=== PATIENT | male | born 1975 | race Caucasian/White ===

== ENCOUNTER 2025-03-31 10:08 | Emergency (ER) | payer BC ==
[2025-03-31 11:17] LABS: BASOPHILS ABSOLUTE AUTO 0.0 K/mm3 (0.0-0.2); BASOPHILS PERCENT AUTO 0.7 % (0.0-1.0); EOSINOPHILS ABSOLUTE AUTO 0.2 K/mm3 (0.0-0.4); EOSINOPHILS PERCENT AUTO 4.7 % (0.0-6.0); IMMATURE GRAN ABSOLUTE AUTO 0.01 K/mm3 (0.00-0.05); IMMATURE GRAN PERCENT AUTO 0.2 % (0.0-0.4); LYMPHOCYTES ABSOLUTE AUTO 1.3 K/mm3 (1.0-4.8); LYMPHOCYTES PERCENT AUTO 29.6 % (24.0-44.0); MEAN PLATELET VOLUME 11.4 fl (9.4-12.4); MONOCYTES ABSOLUTE AUTO 0.6 K/mm3 (0.0-0.8); MONOCYTES PERCENT AUTO 13.0 % (0.0-8.0); NEUTROPHILS ABSOLUTE AUTO 2.2 K/mm3 (1.8-7.7); NEUTROPHILS PERCENT AUTO 51.8 % (41.0-71.0); NRBC ABSOLUTE 0.00 (0.00-0.02); NRBC PERCENT 0.0 % (0.0-0.2); PLATELET COUNT,PLT 213 K/mm3 (150-400); RED BLOOD CELL COUNT 5.34 M/mm3 (4.52-5.90); WHITE BLOOD CELL COUNT,WBC 4.22 K/mm3 (3.9-11.3)
== END 2025-03-31 12:24 | disposition home or self-care (01) ==
LOC: JD.ED 10:08
DX: M17.11 Unilateral primary osteoarthritis, right knee (principal); F17.210 Nicotine dependence, cigarettes, uncomplicated; Z79.899 Other long term (current) drug therapy
CPT/HCPCS: 36415; 73564-26-RT; 73564-RT; 84550; 85025; 85652; 86140; 99283